=== PATIENT | male | born 1950 | race Caucasian/White ===

== ENCOUNTER → 2017-08-16 | Outpatient (CLI) | payer MEDICARE, OTHER ==
[~2017-08-16] MED LIST: ASPI81TA19 PO; CEPH-460 PO; CETI-1 PO; CYCL10TA PO; FENO1TAB76 PO; HYDR12.56 PO; LEVO.15 PO; LIPI20TA PO; LOSA50TA PO; MULTTAB27 PO; OMEGCAP PO; WALKER WHEELS/F1 MIS
[2017-08-16 13:05] LABS: APTT (PATIENT) 26.3 SEC (24.3-30.1); PROTHROMBIN TIME - PATIENT 10.7 SEC (9.8-11.6)
--- NOTE | 2017-08-16 13:36 | RADRPT ---
EXAM DATE/TIME: 08/16/2017 13:09 [facility] COMPARISON: No previous studies available for comparison. INDICATIONS : Evaluate for pneumonia,pneumothorax or communicable disease. c spine surgery. MEDICAL HISTORY : None. SURGICAL HISTORY : None. ENCOUNTER: Initial ACUITY: 1 day PAIN SCORE: 0/10 LOCATION: Bilateral chest FINDINGS: PA and lateral views of the chest demonstrate the lungs to be symmetrically aerated without evidence of mass, infiltrate or effusion. The cardiomediastinal contours are unremarkable. Osseous structure s are intact. CONCLUSION: No acute disease. Jim Wise MD FACR on August 16, 2017 at 13:34 Board Certified Radiologist. This report was verified electronically.
[2017-08-16 13:48] LABS: BLOOD, URINE NEG (NEG); COMMENT (UR) CULT NOT INDICATED; CULTURE IF INDICATED CULT NOT INDICATED; GLUCOSE,URINE NEG (NEG); KETONE, URINE NEG (NEG); NITRITE,URINE NEG (NEG); PH, URINE 6.5 (5.0-8.5); URINE COLOR YELLOW (YELLW/STRAW)
--- NOTE | 2017-08-19 11:34 | EKG ---
Date Performed: 08/16/2017 Time Performed: 12:55:24 PTAGE: 67 years EKG: Sinus rhythm BORDERLINE RIGHT AXIS DEVIATION POSSIBLE SEPTAL MYOCARDIAL INFARCTION, OF INDETERMINATE AGE ABNORMAL ECG NO PREVIOUS TRACING DOCTOR: Alexis Thibodeaux Interpretating Date/Time 08/19/2017 11:34:03
== END ==
LOC: CPRE 11:56
PROVIDERS: ATTEND Neurological Surgery
DX: Z01.812 Encounter for preprocedural laboratory examination (principal); Z01.811 Encounter for preprocedural respiratory examination; Z01.810 Encounter for preprocedural cardiovascular examination; M50.10 Cervical disc disorder with radiculopathy, unspecified cervical region; M48.02 Spinal stenosis, cervical region; M50.30 Other cervical disc degeneration, unspecified cervical region; M47.12 Other spondylosis with myelopathy, cervical region; R94.31 Abnormal electrocardiogram [ECG] [EKG]; Z79.01 Long term (current) use of anticoagulants
CPT/HCPCS: 71020; 81001; 85610; 85730; 93005

== ENCOUNTER 2017-08-20 05:57 | Observation (INO) | payer MEDICARE, OTHER ==
[~2017-08-20] VITALS: Ht 172.7 cm; Wt 76.4 kg
[~2017-08-20 05:57] MED LIST changes: -CEPH-460 PO; -CYCL10TA PO; -WALKER WHEELS/F1 MIS
[2017-08-20] MEDS ORDERED: INSULIN HUMAN REGULAR 1,000 UNITS/10 ML VIAL SQ PRN (06:30)
[2017-08-20] MEDS ORDERED: SODIUM CHLOR 0.9% 1000 ML INJ 1,000 ML IV SCH (06:30)
[2017-08-20] MEDS ORDERED: METOPROLOL TARTRATE 25 MG TAB PO PRN (06:30)
[2017-08-20] MEDS ORDERED: LACTATED RINGER'S 1000 ML IV PRN (06:30)
[2017-08-20] MEDS ORDERED: VANCOMYCIN HCL 1000 MG ON-CALL/NS 250 ML IV SCH ×2 (06:30)
[2017-08-20] MEDS ORDERED: SODIUM CHLORID 0.9% 500 ML IV PRN (06:30)
[2017-08-20] MEDS ORDERED: POVIDONE IODINE 5% (ANTISEPSIS KIT) 4 APPLICATIONS EACH NARE PRN (06:30)
[2017-08-20] MEDS ORDERED: CHLORHEXIDINE GLUCONATE 2 % 1 PACK (2 CLOTHS) TOPICAL PRN (06:30)
[2017-08-20] MEDS ORDERED: GELFOAM SIZE 100 ONE (06:55)
[2017-08-20] MEDS ORDERED: BUPIVACAINE/EPINEPHRINE 0.5% 50 ML VIAL ONE (06:55)
[2017-08-20] MEDS ORDERED: THROMBIN (TOPICAL) 5,000 UNIT VIAL ONE ×2 (06:55→10:58)
[2017-08-20] MEDS ORDERED: VANCOMYCIN HCL 1000 MG VIAL ONE (06:55)
[2017-08-20] MEDS ORDERED: DEXAMETHASONE SOD PHOS 4 MG/ML VIAL ONE (11:34)
[2017-08-20] MEDS ORDERED: ACETAMINOPHEN 1000 MG/100 ML 100 ML IV ONE (11:34)
[2017-08-20] MEDS ORDERED: PROPOFOL 500 MG/50 ML INJ 0 ML ONE (11:45)
[2017-08-20] MEDS ORDERED: ePHEDrine/NS 25 MG/5 ML SYR IV ONE (12:00)
[2017-08-20] MEDS ORDERED: ROCURONIUM INJ 50 MG/5 ML SYRINGE IV PUSH ONE (12:00)
[2017-08-20] MEDS ORDERED: DEXAMETHASONE SOD PHOS 4 MG/ML VIAL IV ONE (12:00)
[2017-08-20] MEDS ORDERED: PHENYLEPH/NS 1000 MCG/10 ML SYR IV ONE (12:00)
[2017-08-20] MEDS ORDERED: SODIUM CHLOR 0.9% 1000 ML INJ 2,000 ML IV ONE (12:00)
[2017-08-20] MEDS ORDERED: PROPOFOL 200 MG/20 ML AMP IV ONE (12:00)
[2017-08-20] MEDS ORDERED: GLYCOPYRROLATE 1 MG/5 ML SYRINGE IV PUSH ONE (12:00)
[2017-08-20] MEDS ORDERED: NEOSTIGMINE 3 MG/3 ML SYR IV ONE (12:00)
[2017-08-20] MEDS ORDERED: ONDANSETRON HCL 4 MG/2 ML VIAL IV PUSH ONE (12:00)
[2017-08-20] MEDS ORDERED: LIDOCAINE HCL 1% PF 5 ML AMPULE OTHER ONE (12:00)
[2017-08-20] MEDS ORDERED: DO NOT ADM ANY ANTICOAGULANT DRUGS PRN (12:22)
--- NOTE | 2017-08-20 12:27 | RADRPT ---
EXAM DATE/TIME: 08/20/2017 08:48 [facility] COMPARISON: No previous studies available for comparison. INDICATIONS : Anterior cervical fusion of C3/4 C4/5. MEDICAL HISTORY : None. SURGICAL HISTORY : None. ENCOUNTER: Initial ACUITY: 1 day PAIN SCORE: Non-responsive. LOCATION: Cervical spine. FINDINGS: Status post anterior cervical fusion at C3-4, C4-5. There is good alignment of the cervical spine and fusion. The hardware is grossly intact. No focal soft tissue swelling. CONCLUSION: Good position and alignment of the anterior cervical fusion at C3-4 and C4-5. Roderick Rios MD on August 20, 2017 at 12:26 Board Certified Radiologist. This report was verified electronically.
[2017-08-20] MEDS ORDERED: PROMETHAZINE INJ 25 MG/ML VIAL IM PRN (12:30)
[2017-08-20] MEDS ORDERED: MAGNESIUM HYDROXIDE SUSP 30 ML CUP PO PRN (12:30)
[2017-08-20] MEDS ORDERED: ONDANSETRON HCL 4 MG/2 ML VIAL IV PUSH PRN (12:30)
[2017-08-20] MEDS ORDERED: CYCLOBENZAPRINE HCL 10 MG TAB PO PRN (12:30)
[2017-08-20] MEDS ORDERED: ALUMINUM/MAGNESIUM/SIMETH 30 ML CUP PO PRN (12:30)
[2017-08-20] MEDS ORDERED: ACETAMINOPHEN/HYDROcodone 325 MG/10 MG TAB PO PRN (12:30)
[2017-08-20] MEDS ORDERED: SODIUM CHLORIDE 0.9% FLUSH 10 ML FLUSH IV FLUSH PRN (12:30)
[2017-08-20] MEDS ORDERED: ACETAMINOPHEN 325 MG TAB PO PRN (12:30)
[2017-08-20] MEDS ORDERED: RESP: ALBUTEROL 2.5 MG/3 ML NEB (PRN) NEB (12:30)
[2017-08-20] MEDS ORDERED: ZOLPIDEM TARTRATE 5 MG TAB PO PRN (12:30)
[2017-08-20] MEDS ORDERED: cloNIDine HCL 0.1 MG TAB PO PRN (12:30)
[2017-08-20] MEDS ORDERED: MENTHOL LOZENGE BUCCAL PRN (12:30)
--- NOTE | 2017-08-20 12:36 | PD.OP ---
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 endotracheal by Sarah Stinson Surgeon: Parveen Gibbs M.D. Felt Strip Finisher(s): Renetta Contreras Operation and Findings: Following administration of general endotracheal anesthesia with the neck maintained in a [employer] [place] J collar neutral position, the patient received a gram of vancomycin and Decadron 10 mg intravenously. Sequential compression devices were placed in supine position on a Jeffrey table and all pressure points adequately padded. The head secured in a donut and anterior cervical region then shaved and prepped with Chloraprep and sterilely draped with Ioban along with the usual sterile draping. A transverse skin incision on the left side of the neck was then made after infiltrating the skin with 0.5% Marcaine with epinephrine solution extending down through the platysma. At the anterior border of the sternocleidomastoid further dissection was undertaken developing a plane between the carotid sheath laterally and the trachea esophagus medially. The prevertebral fascia was exposed and dissected out. The medial attachments of the longus colli muscles were detached and a self-retaining retractor used for exposure. The C3-4 and C4-5 disc space was localized with a marking pin in the disc space and using lateral fluoroscopy. [place] distraction screws 14 mm length were placed one in the C3 and one in the C5 body interbody distraction and exposure. There was significant disc degeneration with disc height collapse and anterior osteophytes noted at both levels and the osteophytes were resected with a Leksell and annulus incised with a 15 blade and further dissection undertaken using microtechnique with microscope magnification. Diskectomy was undertaken with pituitaries and the endplates were also decorticated with curettes and drill bit. And more posteriorly there was disk osteophyte complex compressing the thecal sac along with a significant uncovertebral joint hypertrophy with foraminal stenosis which was decompressed along with removal of the posterior longitudinal ligaments at both levels. The foramen was decompressed bilaterally using a Kerrison's and palpation with a nerve hook, the exiting nerve roots were felt to be free. The area was then copiously irrigated. I then placed a Peek cage packed with local autograft bone at the C3-4 and C4-5 interspaces under fluoroscopy guidance. [place] distraction pins were removed and the holes plugged with Gelfoam for hemostasis. In order to facilitate the fusion and provide stabilization, a Precision spine cervical plate was then placed with two 14 mm variable angle screws in the C3 body, one in the C4 body and two 14 mm fixed angle screws in the C5 body. The plate screw locking mechanism was then engaged. AP and lateral fluoroscopy confirmed good placement of the construct and the retractor was then removed. Muscular bleeding points were cauterized with bipolar cautery and Gelfoam was then also used for hemostasis which was removed. The platysma was then approximated using 3-0 Vicryl interrupted stitches and 3-0 Vicryl subcuticular stitch also placed in an interrupted fashion, and final skin closure was with Mastisol and Steri-Strips. Sterile dressing was then applied. A [employer] [place] J collar then placed. The patient was then extubated and taken to the recovery room. There are no intraoperative complications and all sponge and needle counts were correct at the end of procedure. Estimated blood loss was about 100 cc. The patient did undergo intraoperative neurologic monitoring which remained stable throughout the surgery. Parveen Gibbs MD Aug 20, 2017 12:36
[2017-08-20] MEDS ORDERED: *morphine SULFATE 8 MG/ML PERIprocedure ONLY ONE (13:39)
[2017-08-20] MEDS ORDERED: NS + KCL 20 MEQ INJ 1,000 ML IV SCH ×2 (14:00)
[2017-08-20] MEDS ORDERED: MORPHINE SULFATE 2 MG/ML INJ IV PUSH PRN (14:15)
[2017-08-20 15:45] VITALS: BP 148/84; PULSE 104; RESP 18; TEMP 96.1; O2SAT 97
[2017-08-20] MEDS: DEXAMETHASONE SOD PHOS 4 MG/ML VIAL IV PUSH SCH ×2 (17:32→22:24)
[2017-08-20] MEDS: ACETAMINOPHEN/HYDROcodone 325 MG/10 MG TAB PO PRN ×2 (17:33→22:24)
[2017-08-20] MEDS: DOCUSATE SODIUM 100 MG CAP PO SCH (19:53)
[2017-08-20] MEDS: SODIUM CHLORIDE 0.9% FLUSH 10 ML FLUSH IV FLUSH SCH (19:54)
[2017-08-20 20:00] VITALS: BP 152/86; PULSE 100; RESP 20; TEMP 97.6; O2SAT 96
[2017-08-20] MEDS ORDERED: CETIRIZINE HCL 10 MG TAB PO SCH (21:00)
[2017-08-20] MEDS ORDERED: ATORVASTATIN 20 MG TAB PO SCH (21:00)
[2017-08-20 21:26] VITALS: O2SAT 96
[2017-08-21] VITALS: BP 164/93; PULSE 91; RESP 20; TEMP 97.9; O2SAT 95
[2017-08-21 04:31] VITALS: BP 171/92; PULSE 94; RESP 18; TEMP 97.6; O2SAT 97
[2017-08-21] MEDS: ACETAMINOPHEN/HYDROcodone 325 MG/10 MG TAB PO PRN ×2 (04:39→09:41)
[2017-08-21] MEDS: DEXAMETHASONE SOD PHOS 4 MG/ML VIAL IV PUSH SCH (04:40)
[2017-08-21] MEDS ORDERED: LEVOTHYROXINE SODIUM 150 MCG TAB PO SCH (06:00)
[2017-08-21 06:12] VITALS: BP 158/91
[2017-08-21 07:37] VITALS: BP 165/88; PULSE 90; RESP 18; TEMP 98; O2SAT 95
[2017-08-21] MEDS: DOCUSATE SODIUM 100 MG CAP PO SCH (07:54)
[2017-08-21] MEDS: SODIUM CHLORIDE 0.9% FLUSH 10 ML FLUSH IV FLUSH SCH (07:54)
--- NOTE | 2017-08-21 08:32 | HHI.NSPN ---
History Chief Complaint: mild incisional pain. Interval History Pt s/p C3/C4 and C4/C5 anterior cervical fusion on 08/20/17. No radiculopathy in UEs. Paresthesias improved and very pleased. He has a history of severe bilateral carpal tunnel. Pt states strength has already improved. Cervical collar in place. Pt voiding well. He is requesting discharge home. Review of Systems General: Negative for: fever, chills, insomnia Respiratory: Negative for: shortness of breath, cough, sputum Cardiovascular: Negative for: chest pain Gastrointestinal: Negative for: nausea, vomitting, diarrhea, constipation Exam Results Vital Signs Date Time Temp Pulse Resp B/P (MAP) Pulse Ox O2 Delivery O2 Flow Rate FiO2 08/21/17 07:37 98.0 90 18 165/88 (113) 95 08/20/17 21:26 21 08/20/17 15:30 Room Air 08/20/17 13:30 2 Intake and Output 08/21/17 08/21/17 08/22/17 08:00 16:00 00:00 Intake Total 580 ml Output Total 900 ml Balance -320 ml Physical Examination Resp: CTA bilaterally. Heart: NSR no murmurs Abd: Soft positive bs Skin: Incision clean and dry. No signs of infection. Steristrips intact. Muscle: Moves all 4 extremities. Right deltoid 3/5, HI 4/5, others 4+/5. Neuro: Pt awake and alert. Sitting up in chair. paresthesias in hands improved. Follows commands well. Speech clear and appropriate. Lab, Micro, Other Results Last Impressions Cervical Spine X-Ray 08/20/17 0000 Signed Impressions: Service Date/Time: Sunday, August 20, 2017 08:48 - CONCLUSION: Good position and alignment of the anterior cervical fusion at C3-4 and C4-5. Roderick Rios MD Medical Decision Making Impression and Plan 67 y/o M s/p C3/C4 and C4/C5 ACF. P: Discharge home Discussed restrictions Follow up as scheduled in 6 weeks with x-rays. Jeison Kellogg Aug 21, 2017 8:32 am
--- NOTE | 2017-08-21 08:37 | HHI.FF ---
Face to Face Verification Diagnosis: (1) Spinal stenosis in cervical region Physical Therapy Order: Evaluate and Treat, Improve ambulation, Strength and gait training Occupational Therapy Order: Evaluate and Treat, Improve ADL, Fine motor coordination I have seen patient Juan Luis Morton on 08/21/17. My clinical findings support the need for the requested home health care services because: Deconditioned w/ increased weakness High risk of falls I certify that my clinical findings support that this patient is homebound because: Post-op weakness Unsteady gait/balance Unable to use public transportation Jeison Kellogg Aug 21, 2017 08:37
[2017-08-21] MEDS ORDERED: PANTOPRAZOLE SOD 40 MG DELAYED RELEASE TAB PO SCH (09:00)
[2017-08-21] MEDS ORDERED: HYDROCHLOROTHIAZIDE 12.5 MG CAP PO SCH (09:00)
[2017-08-21] MEDS ORDERED: ASPIRIN EC 81 MG TABEC PO SCH (09:00)
[2017-08-21] MEDS ORDERED: LOSARTAN 50 MG TAB PO SCH (09:00)
[2017-08-21] MEDS ORDERED: FENOFIBRATE 48 MG TAB PO SCH (09:00)
[2017-08-21] MEDS ORDERED: WALKER WHEELS/F1 MIS (09:28)
[2017-08-26] MEDS ORDERED: CEPH-460 PO (13:04)
[2017-08-30] MEDS ORDERED: CYCL10TA PO (11:13)
== END 2017-08-21 10:32 | disposition home or self-care (01) ==
LOC: HSDC 05:57 → HSDI 12:31 → N06A 16:04
PROVIDERS: ADMIT Neurological Surgery; ATTEND Neurological Surgery
DX: M50.00 Cervical disc disorder with myelopathy, unspecified cervical region (principal); M48.02 Spinal stenosis, cervical region; M25.78 Osteophyte, vertebrae
CPT/HCPCS: 00600; 20936; 22551; 22552; 22854; 72040; 76000; 97163; C1713; G0378; G8987; G8988; J0131; J0690; J1100; J2270; J2370; J2405; J2710; J3010; J3370; J3480; J7030; J7120; L0150; L0172

== ENCOUNTER → 2017-08-26 | Outpatient (CLI) | payer MEDICARE, OTHER ==
[~2017-08-26] MED LIST changes: +CEPH-460 PO; +CYCL10TA PO; +WALKER WHEELS/F1 MIS
[2017-08-26 13:44] LABS: AUTOMATED NEUTROPHIL # 4.7 TH/MM3 (1.8-7.7); BASOPHIL # 0.1 TH/MM3 (0-0.2); BASOPHIL % 0.9 % (0.0-2.0); EOSINOPHIL # 0.6 TH/MM3 (0-0.4); HEMATOCRIT 41.2 % (39.0-51.0); HEMO FLAGS DIFF FINAL; LYMPH % 18.3 % (9.0-44.0); LYMPHOCYTE # 1.5 TH/MM3 (1.0-4.8); MEAN CORPUSCULAR HEMOGLOBIN 33.4 PG (27.0-34.0); MEAN CORPUSCULAR HGB CONC 34.8 % (32.0-36.0); MONO % 14.8 % (0.0-8.0); PLATELET COUNT 232 TH/MM3 (150-450); RED BLOOD COUNT 4.29 MIL/MM3 (4.50-5.90); RED CELL DISTRIBUTION WIDTH 12.8 % (11.6-17.2)
== END ==
LOC: CLAB 13:21
PROVIDERS: ATTEND Physician Assistant Medical
DX: M48.02 Spinal stenosis, cervical region (principal); L03.90 Cellulitis, unspecified
CPT/HCPCS: 36415; 85025